=== PATIENT | female | born 2000 | race Two or more races ===

== ENCOUNTER 2022-07-16 19:17 | Emergency (ER) | payer MEDICAID, OTHER ==
[~2022-07-16] VITALS: Ht 157.5 cm; Wt 58.0 kg
[2022-07-16] MEDS ORDERED: AMOX-277 PO (20:19)
[2022-07-16] MEDS ORDERED: ACET-1158 PO (20:19)
[2022-07-16] MEDS ORDERED: PRED20TA2 PO (20:19)
[2022-07-16] MEDS ORDERED: cefTRIAXone SOD 1,000 MG VL IM ONE (20:30)
[2022-07-16] MEDS ORDERED: methylPREDNISolone SOD SUCC 125 MG/2 ML VL IM ONE (20:30)
[2022-07-16 21:09] VITALS: BP 123/85
== END 2022-07-16 21:09 | disposition home or self-care (01) ==
LOC: ER 19:17
DX: J03.90 Acute tonsillitis, unspecified (principal); Z20.822 Contact with and (suspected) exposure to COVID-19; Z88.1 Allergy status to other antibiotic agents; Z88.6 Allergy status to analgesic agent
CPT/HCPCS: 36415; 87426; 87804; 96372; 99284; J0696; J2930

== ENCOUNTER 2023-01-14 21:39 | Emergency (ER) | payer MEDICAID ==
[2023-01-14 21:39] VITALS: BP 141/86; RESP 22; O2SAT 96
[~2023-01-14 21:39] MED LIST: ACET500T58 PO; AMOX875T4 PO; PRED20TA2 PO
[2023-01-14 22:18] VITALS: PULSE 120
== END 2023-01-15 01:03 | disposition home or self-care (01) ==
LOC: ER 21:44
DX: F07.81 Postconcussional syndrome (principal); Z88.8 Allergy status to other drugs, medicaments and biological substances; Z79.1 Long term (current) use of non-steroidal anti-inflammatories (NSAID); Z79.899 Other long term (current) drug therapy
CPT/HCPCS: 70450; 93005